=== PATIENT | female | born 1985 | race Caucasian/White ===

== ENCOUNTER 2016-11-24 11:52 | Emergency (ER) | payer MEDICAID, OTHER ==
[2016-11-24 12:01] VITALS: BP 123/85; PULSE 61; RESP 17; TEMP 98.2; O2SAT 99
--- NOTE | 2016-11-24 13:37 | EDPHY ---
H & P Time Seen by Provider: 11/24/16 13:00 HPI/ROS: CHIEF COMPLAINT: Left gold pain HISTORY OF PRESENT ILLNESS: The patient is a 31 year old female who presents emergency department with left gold pain. She states that approximately 1 month ago she was running and fell. She struck her heel into her left gold. The pain slowly improved. Yesterday she was doing the same activity and again struck her heel into her gold. She noticed bruising on her left anterior gold. She had mild tenderness to palpation at this point. The patient states she felt a "bump that would moved to the side and then moved back." She has no pain with ambulation. No posterior leg pain. No swelling of her lower extremity. REVIEW OF SYSTEMS: My complete review of systems is negative except as mentioned in the HPI. Past Medical/Surgical History: Negative Past surgical history: Negative Social history: The patient does not smoke. Family history: No clotting disorder Smoking Status: Never smoked Physical Exam: General Appearance: Alert and no distress. Head: Pupils equal. Normal. Respiratory: No respiratory distress. Cardiac: regular rate and rhythm. Extremities: Patient has a small quarter-sized bruising on the left anterior gold. There is a small palpable bump. This is not fluctuance. There is no erythema. There is no posterior leg pain or swelling. No Homans or cord. Neurovascular intact distally. No streaking up the leg. Skin: No rashes or lesions. Neuro: Alert. Normal mood and affect. Constitutional: Initial Vital Signs Temperature (C) 36.8 C 11/24/16 11:58 Heart Rate 61 11/24/16 11:58 Respiratory Rate 17 11/24/16 11:58 Blood Pressure 123/85 H 11/24/16 11:58 O2 Sat (%) 99 11/24/16 11:58 O2 Delivery Mode Room Air Allergies/Adverse Reactions: No Known Allergies Allergy (Unverified 11/24/16 11:58) Home Medications: Medication Instructions Recorded NK [No Known Home Meds] 11/24/16 Medical Decision Making ED Course/Re-evaluation: In the emergency department I discussed possible etiologies with the patient. I answered all her questions. Because of her tenderness to palpation an x-ray of her left gold was ordered. She consented. Left gold x-ray: No acute disease noted. Please refer the dictated report. I discussed the result with the patient. I answered all her questions. She is given warnings prior to leaving. Differential Diagnosis: My differential includes but is not limited to contusion, hematoma, varicose vein, venous occlusion, arterial occlusion, fracture Departure - Departure Disposition: Home, Routine, Self-Care Clinical Impression: Contusion Qualifiers: Encounter type: initial encounter Contusion area: lower leg Laterality: left Qualified Code(s): S80.12XA - Contusion of left lower leg, initial encounter Condition: Good Instructions: Contusion in Adults (ED) Additional Instructions: Your x-ray was negative. Return with increasing pain, swelling, redness, fever or any other concerns. Referrals: [facility] [Other] - 5-7 days, call for appt.
== END 2016-11-24 15:15 | disposition home or self-care (01) ==
DX: S80.12XA Contusion of left lower leg, initial encounter (principal); W22.8XXA Striking against or struck by other objects, initial encounter; Y99.8 Other external cause status; Y93.B9 Activity, other involving muscle strengthening exercises

== ENCOUNTER → 2017-04-08 | Outpatient (CLI) | payer MEDICAID | LOC: FIMAGING 15:45 | PROVIDERS: ATTEND Advanced Practice Midwife | DX: N83.202 Unspecified ovarian cyst, left side (principal) ==